=== PATIENT | female | born 1980 | race Hispanic/Latino ===

== ENCOUNTER 2019-04-22 08:23 | Observation (INO) | payer BC ==
[2019-04-22] MEDS ORDERED: ASPIRIN 325 MG TAB PO ONE (08:38)
--- NOTE | 2019-04-22 09:07 | XRay Report ---
CHEST 1 VIEW INDICATION / CLINICAL INFORMATION: Chest Pain. COMPARISON: None available. FINDINGS: SUPPORT DEVICES: None. HEART / MEDIASTINUM: No significant abnormality. LUNGS / PLEURA: No significant pulmonary or pleural abnormality. No pneumothorax. Right breast contour is not well seen, related to asymmetry or previous mastectomy. IMPRESSION: No acute finding. Signer Name: Israel Willoughby MD Signed: 04/22/2019 9:03 AM Workstation Name: [id number]
[2019-04-22 09:09] LABS: Basophils # (Auto) 0.1 K/mm3 (0.0-0.1); Basophils % (Auto) 0.9 % (0.0-1.8); Eosinophils # (Auto) 0.4 K/mm3 (0.0-0.4); Eosinophils % (Auto) 5.4 % (0.0-4.3); Hematocrit 37.7 % (30.3-42.9); Hemoglobin 12.7 gm/dl (10.1-14.3); Lymphocytes # (Auto) 1.9 K/mm3 (1.2-5.4); Lymphocytes % (Auto) 28.1 % (13.4-35.0); Mean Corpuscular HGB Conc 34 % (30-34); Mean Corpuscular Volume 92 fl (79-97); Monocytes # (Auto) 0.4 K/mm3 (0.0-0.8); Monocytes % (Auto) 6.1 % (0.0-7.3); Platelet Count 351 K/mm3 (140-440); Red Blood Count 4.09 M/mm3 (3.65-5.03); Red Cell Distribution Width 12.9 % (13.2-15.2)
--- NOTE | 2019-04-22 09:14 | Emergency Department Report ---
ED General Adult HPI - General Chief complaint: Chest Pain Stated complaint: CP/THROAT PAIN Time Seen by Provider: 04/22/19 08:52 Source: patient Mode of arrival: Ambulatory Limitations: No Limitations - History of Present Illness Initial comments: This is a 39-year-old female who was evaluated at [facility] yesterday. She has been having recurrent symptoms for the past week and a half. She describes a tightness that begins at the base of her neck ("throat"). She states that it radiates to her chest and causes a substernal heaviness as well as higher in her neck. She states that she has some sharp pain in her back with this. She denies any precipitating elements. She states that she sometimes gets it at rest and sometimes when walking. It is not pleuritic. It is not associated with cough nausea vomiting sweating or dyspnea. She denies any recent travel leg pain or swelling. Patient has no known history of coronary artery disease nor dyslipidemia. She states that she has an aunt that has "angina". -: Gradual, week(s) Location: neck, chest, back Radiation: other (described above) Quality: other (above explained) Consistency: intermittent, now resolved Improves with: none Worsens with: none Associated Symptoms: denies other symptoms - Related Data Allergies Allergy/AdvReac Type Severity Reaction Status Date / Time No Known Allergies Allergy Unverified 04/22/19 08:32 ED Review of Systems ROS: Stated complaint: CP/THROAT PAIN Other details as noted in HPI Constitutional: denies: chills, fever Eyes: denies: eye pain, eye discharge, vision change ENT: throat pain. denies: ear pain Respiratory: denies: cough, shortness of breath, wheezing Cardiovascular: chest pain. denies: palpitations Endocrine: no symptoms reported Gastrointestinal: denies: abdominal pain, nausea, diarrhea Genitourinary: denies: urgency, dysuria, discharge Musculoskeletal: back pain. denies: joint swelling, arthralgia Skin: denies: rash, lesions Neurological: denies: headache, weakness, paresthesias Psychiatric: denies: anxiety, depression Hematological/Lymphatic: denies: easy bleeding, easy bruising ED Past Medical Hx - Past Medical History Previous Medical History?: Yes Additional medical history: MVP - Surgical History Past Surgical History?: No - Social History Smoking Status: Never Smoker Substance Use Type: Alcohol ED Physical Exam - General Limitations: No Limitations General appearance: alert, in no apparent distress - Head Head exam: Present: atraumatic, normocephalic - Eye Eye exam: Present: normal appearance. Absent: scleral icterus - ENT ENT exam: Present: mucous membranes moist - Neck Neck exam: Present: normal inspection - Respiratory Respiratory exam: Present: normal lung sounds bilaterally. Absent: respiratory distress - Cardiovascular Cardiovascular Exam: Present: regular rate, normal rhythm. Absent: systolic murmur, diastolic murmur, rubs, gallop - GI/Abdominal GI/Abdominal exam: Present: soft, normal bowel sounds. Absent: distended, tenderness, guarding, rebound, rigid - Extremities Exam Extremities exam: Present: normal inspection, normal capillary refill. Absent: pedal edema, joint swelling, calf tenderness - Back Exam Back exam: Present: normal inspection - Neurological Exam Neurological exam: Present: alert, oriented X3, CN II-XII intact. Absent: motor sensory deficit - Psychiatric Psychiatric exam: Present: normal affect, normal mood - Skin Skin exam: Present: warm, dry, intact, normal color. Absent: rash ED Course Vital Signs 04/22/19 04/22/19 04/22/19 08:32 08:57 09:00 Temperature 98.5 F Pulse Rate 88 Respiratory 20 Rate Blood Pressure 128/76 120/76 O2 Sat by Pulse 99 99 100 Oximetry 04/22/19 04/22/19 04/22/19 09:30 10:00 10:30 Temperature Pulse Rate Respiratory Rate Blood Pressure 129/75 131/76 134/92 O2 Sat by Pulse 100 100 100 Oximetry 04/22/19 04/22/19 11:01 11:30 Temperature Pulse Rate Respiratory Rate Blood Pressure 140/83 144/78 O2 Sat by Pulse 100 99 Oximetry - Reevaluation(s) Reevaluation #1: Discussed with hospitalist. Patient admitted for further care and evaluation. 04/22/19 12:11 ED Medical Decision Making - Lab Data Result diagrams: 04/22/19 08:48 04/22/19 08:48 Laboratory Results - last 24 hr 04/22/19 04/22/19 08:48 08:48 WBC 6.8 RBC 4.09 Hgb 12.7 Hct 37.7 MCV 92 MCH 31 MCHC 34 RDW 12.9 L Plt Count 351 Lymph % (Auto) 28.1 [place] % (Auto) 6.1 Eos % (Auto) 5.4 H Baso % (Auto) 0.9 Lymph # 1.9 [place] # 0.4 Eos # 0.4 Baso # 0.1 Seg Neutrophils % 59.5 Seg Neutrophils # 4.1 Sodium 137 Potassium 4.0 Chloride 102.2 Carbon Dioxide 20 L Anion Gap 19 BUN 14 Creatinine 0.6 L Estimated GFR > 60 BUN/Creatinine Ratio 23 Glucose 102 H Calcium 9.4 Troponin T < 0.010 - EKG Data -: EKG Interpreted by Me EKG shows normal: sinus rhythm, axis, intervals, QRS complexes, ST-T waves Rate: normal - EKG Data Interpretation: normal EKG, other (lower voltage probably related to habitus) - Radiology Data Radiology results: report reviewed (NAF) Critical care attestation.: If time is entered above; I have spent that time in minutes in the direct care of this critically ill patient, excluding procedure time. ED Disposition Clinical Impression: Chest pain Qualifiers: Chest pain type: unspecified Qualified Code(s): R07.9 - Chest pain, unspecified Disposition: OP ADMIT IP TO THIS HOSP Is pt being admited?: Yes Does the pt Need Aspirin: Yes Condition: Stable Instructions: Chest Pain (ED) Time of Disposition: 12:11
[2019-04-22 09:27] LABS: BUN/Creatinine Ratio 23; Blood Urea Nitrogen 14 mg/dL (7-17); Calcium 9.4 mg/dL (8.4-10.2); Hemolysis Index 10
[2019-04-22] MEDS ORDERED: oxyCODONE /ACETAMINOPHEN 5-325MG TAB PO PRN (20:51)
[2019-04-22] MEDS ORDERED: ONDANSETRON 4 MG/2 ML INJ IV PRN (20:51)
[2019-04-22] MEDS ORDERED: ACETAMINOPHEN 325 MG TAB PO PRN (20:51)
--- NOTE | 2019-04-22 20:57 | History and Physical Report ---
History of Present Illness Date of admission: 04/22/19 12:02 History of present illness: 39-year-old woman who presents to the hospital complaining of a very strange chest pain that has been going on for 2 weeks now. She describes it as a sharp pain that starts in the base of her neck and goes into stops the inner area and then radiates to her back. The pain is not related to eating or drinking, is not positional, is not related to exertion. She states that sometimes it keeps her up at night and wakes her up. The episodes only last 1 to 2 minutes. Have been going on for 2 weeks, at times she would not have any episode for a day or 2, then it comes back more severe the following day. It got really bad today prompting her to go to [facility] who then referred her to the ER. Past History Past Medical History: No medical history Past Surgical History: No surgical history Social history: no significant social history Family history: no significant family history Medications and Allergies Allergies Allergy/AdvReac Type Severity Reaction Status Date / Time No Known Allergies Allergy Unverified 04/22/19 08:32 Active Meds: Active Medications Acetaminophen (Tylenol) 650 mg PO Q4H PRN PRN Reason: Pain MILD(1-3)/Fever >100.5/MA Ondansetron HCl (Zofran) 4 mg IV Q8H PRN PRN Reason: Nausea And Vomiting Oxycodone/Acetaminophen (Percocet 5/325) 1 tab PO Q6H PRN PRN Reason: Pain, Moderate (4-6) Sodium Chloride (Sodium Chloride Flush Syringe 10 Ml) 10 ml IV BID AQUILES Sodium Chloride (Sodium Chloride Flush Syringe 10 Ml) 10 ml IV PRN PRN PRN Reason: LINE FLUSH Sodium Chloride (Sodium Chloride Flush Syringe 10 Ml) 10 ml IV PRN PRN PRN Reason: LINE FLUSH Review of Systems All systems: negative (See HPI) Exam - Constitutional Vitals: Temp Pulse Resp BP Pulse Ox 98.5 F 90 16 108/54 98 04/22/19 08:32 04/22/19 18:33 04/22/19 18:33 04/22/19 20:01 04/22/19 20:01 General appearance: Present: no acute distress, well-nourished - EENT Eyes: Present: PERRL ENT: hearing intact, clear oral mucosa - Neck Neck: Present: supple, normal ROM - Respiratory Respiratory effort: normal Respiratory: bilateral: CTA - Cardiovascular Heart Sounds: Present: S1 & S2. Absent: rub, click - Extremities Extremities: pulses symmetrical, No edema Peripheral Pulses: within normal limits - Abdominal General gastrointestinal: Present: soft, non-tender, non-distended, normal bowel sounds Female genitourinary: Present: normal - Integumentary Integumentary: Present: clear, warm, dry - Musculoskeletal Musculoskeletal: gait normal, strength equal bilaterally - Psychiatric Psychiatric: appropriate mood/affect, intact judgment & insight - Neurologic Neurologic: CNII-XII intact, moves all extremities Results - Labs CBC & Chem 7: 04/22/19 08:48 04/22/19 08:48 Labs: Laboratory Last Values WBC 6.8 K/mm3 (4.5-11.0) 04/22/19 08:48 RBC 4.09 M/mm3 (3.65-5.03) 04/22/19 08:48 Hgb 12.7 gm/dl (10.1-14.3) 04/22/19 08:48 Hct 37.7 % (30.3-42.9) 04/22/19 08:48 MCV 92 fl (79-97) 04/22/19 08:48 MCH 31 pg (28-32) 04/22/19 08:48 MCHC 34 % (30-34) 04/22/19 08:48 RDW 12.9 % (13.2-15.2) L 04/22/19 08:48 Plt Count 351 K/mm3 (140-440) 04/22/19 08:48 Lymph % (Auto) 28.1 % (13.4-35.0) 04/22/19 08:48 [place] % (Auto) 6.1 % (0.0-7.3) 04/22/19 08:48 Eos % (Auto) 5.4 % (0.0-4.3) H 04/22/19 08:48 Baso % (Auto) 0.9 % (0.0-1.8) 04/22/19 08:48 Lymph # 1.9 K/mm3 (1.2-5.4) 04/22/19 08:48 Walsh # 0.4 K/mm3 (0.0-0.8) 04/22/19 08:48 Eos # 0.4 K/mm3 (0.0-0.4) 04/22/19 08:48 Baso # 0.1 K/mm3 (0.0-0.1) 04/22/19 08:48 Seg Neutrophils % 59.5 % (40.0-70.0) 04/22/19 08:48 Seg Neutrophils # 4.1 K/mm3 (1.8-7.7) 04/22/19 08:48 Sodium 137 mmol/L (137-145) 04/22/19 08:48 Potassium 4.0 mmol/L (3.6-5.0) 04/22/19 08:48 Chloride 102.2 mmol/L (98-107) 04/22/19 08:48 Carbon Dioxide 20 mmol/L (22-30) L 04/22/19 08:48 Anion Gap 19 mmol/L 04/22/19 08:48 BUN 14 mg/dL (7-17) 04/22/19 08:48 Creatinine 0.6 mg/dL (0.7-1.2) L 04/22/19 08:48 Estimated GFR > 60 ml/min 04/22/19 08:48 BUN/Creatinine Ratio 23 % 04/22/19 08:48 Glucose 102 mg/dL (65-100) H 04/22/19 08:48 Calcium 9.4 mg/dL (8.4-10.2) 04/22/19 08:48 Troponin T < 0.010 ng/mL (0.00-0.029) 04/22/19 15:31 - Imaging and Cardiology Chest x-ray: image reviewed (No acute findings) Assessment and Plan Assessment and plan: 39-year-old woman who presents to the hospital with atypical chest pain Chest pain aspirin, EKG no acute findings, chest x-ray neg, troponins negative so far, serial CE, keep NPO for now cardiology consult to determine modality for coronary risk stratification Atypical chest pain Concern for esophageal spasm, will obtain barium swallow DVT prophylaxis; early ambulation Preventative health counseling performed for 17 minutes
[2019-04-23 01:54] LABS: Basophils # (Auto) 0.1 K/mm3 (0.0-0.1); Eosinophils # (Auto) 0.4 K/mm3 (0.0-0.4); Eosinophils % (Auto) 5.6 % (0.0-4.3); Hematocrit 37.5 % (30.3-42.9); Hemoglobin 12.6 gm/dl (10.1-14.3); Lymphocytes % (Auto) 28.1 % (13.4-35.0); Mean Corpuscular HGB Conc 34 % (30-34); Mean Corpuscular Volume 92 fl (79-97); Monocytes # (Auto) 0.5 K/mm3 (0.0-0.8); Monocytes % (Auto) 7.2 % (0.0-7.3); Platelet Count 346 K/mm3 (140-440); Red Blood Count 4.06 M/mm3 (3.65-5.03); Red Cell Distribution Width 13.2 % (13.2-15.2)
[2019-04-23 02:12] LABS: BUN/Creatinine Ratio 26; Blood Urea Nitrogen 13 mg/dL (7-17); Calcium 8.8 mg/dL (8.4-10.2); Hemolysis Index 18
--- NOTE | 2019-04-23 08:52 | Fluoroscopy Report ---
BARIUM SWALLOW Indication: chest pain and throat pain,. Technique: Single and double contrast barium technique utilized to evaluate the esophagus. FINDINGS: To begin the exam, swallowing was evaluated in the lateral position under direct fluorosco py. Swallowing was normal. No mucosal irregularity, mass, mass effect, or critical stenosis. There were no abnormal tertiary c ontractions as seen with dysmotility. No gastroesophageal reflux. IMPRESSION: Unremarkable exam. Fluoroscopic time: 0.9 minutes Number of fluoroscopic images: 34 Signer Name: Sav Gr Jr, MD Signed: 04/23/2019 8:47 AM Workstation Name: [id number]
--- NOTE | 2019-04-23 11:21 | Consultation ---
History of Present Illness Consult date: 04/23/19 Consult reason: chest pain History of present illness: This is a 39-year old woman who presented with reports of tightness that begins in her throat with pain radiating to her chest and back. Patient denies chest pain on exertion. There are no reports of unusual shortness of breath. Cycled troponins are normal. Chest x-ray is negative and her ECG is benign, sinus rhythm with low voltage. Further evaluation with a barium swallow test is also unremarkable. A cardiac consultation has been for further evaluation of chest pain. Past History Past Medical History: No medical history Past Surgical History: No surgical history Social history: no significant social history Family history: no significant family history Medications and Allergies Allergies Allergy/AdvReac Type Severity Reaction Status Date / Time No Known Allergies Allergy Unverified 04/22/19 08:32 Home Medications Medication Instructions Recorded Confirmed Last Taken Type No Known Home Medications [No 04/23/19 04/23/19 Unknown History Reported Home Medications] Active Meds: Active Medications Acetaminophen (Tylenol) 650 mg PO Q4H PRN PRN Reason: Pain MILD(1-3)/Fever >100.5/MA Ondansetron HCl (Zofran) 4 mg IV Q8H PRN PRN Reason: Nausea And Vomiting Oxycodone/Acetaminophen (Percocet 5/325) 1 tab PO Q6H PRN PRN Reason: Pain, Moderate (4-6) Sodium Chloride (Sodium Chloride Flush Syringe 10 Ml) 10 ml IV BID AQUILES Last Admin: 04/23/19 06:23 Dose: 10 ml Documented by: Sodium Chloride (Sodium Chloride Flush Syringe 10 Ml) 10 ml IV PRN PRN PRN Reason: LINE FLUSH Physical Examination Vital Signs Temp Pulse Resp BP Pulse Ox 98.5 F 88 20 128/76 99 04/22/19 08:32 04/22/19 08:32 04/22/19 08:32 04/22/19 08:32 04/22/19 08:32 General appearance: no acute distress HEENT: Positive: PERRL Neck: Positive: trachea midline Cardiac: Positive: Reg Rate and Rhythm Lungs: Positive: Normal Breath Sounds Neuro: Positive: Grossly Intact Results 04/23/19 01:37 04/23/19 01:37 CBC 04/23/19 Range/Units 01:37 WBC 7.3 (4.5-11.0) K/mm3 RBC 4.06 (3.65-5.03) M/mm3 Hgb 12.6 (10.1-14.3) gm/dl Hct 37.5 (30.3-42.9) % Plt Count 346 (140-440) K/mm3 Lymph # 2.0 (1.2-5.4) K/mm3 [place] # 0.5 (0.0-0.8) K/mm3 Eos # 0.4 (0.0-0.4) K/mm3 Baso # 0.1 (0.0-0.1) K/mm3 Comprehensive Metabolic Panel 04/23/19 Range/Units 01:37 Sodium 139 (137-145) mmol/L Potassium 4.0 (3.6-5.0) mmol/L Chloride 106.5 (98-107) mmol/L Carbon Dioxide 21 L (22-30) mmol/L BUN 13 (7-17) mg/dL Creatinine 0.5 L (0.7-1.2) mg/dL Glucose 104 H (65-100) mg/dL Calcium 8.8 (8.4-10.2) mg/dL Assessment and Plan - Patient Problems (1) Chest pain Current Visit: Yes Status: Acute Qualifiers: Qualified Code(s): R07.9 - Chest pain, unspecified Plan to address problem: Atypical chest pain We will obtain a treadmill test today for further cardiac evaluation.
[2019-04-23] MEDS ORDERED: diphenhydrAMINE 50 MG/ML VIAL IV ONE (14:52)
[2019-04-23 16:42] VITALS: BP 113/68
--- NOTE | 2019-04-23 22:27 | Treadmill Report ---
EXERCISE STRESS TEST REPORT. REASON FOR TEST: Chest pain. The patient exercised for 9 minutes and 30 seconds of a Timothy protocol, reaching stage 4 and achieving 10.5 mets. There was no chest pain. Test was stopped for fatigue. Baseline ECG was sinus rhythm. With exercise, there were no ST changes of ischemia. No significant dysrhythmias were noted. CONCLUSION: 1. Very good exercise capacity. 2. No chest pain. 3. No ST changes of ischemia. 4. No significant dysrhythmias. 5. Normal exercise ECG test. JOB# [id number] CA/NTS
== END 2019-04-23 17:00 | disposition home or self-care (01) ==
LOC: ED 08:23 → 3A 12:02
PROVIDERS: ADMIT Internal Medicine; ATTEND Internal Medicine
DX: R07.89 Other chest pain (principal); Z79.899 Other long term (current) drug therapy
CPT/HCPCS: 36415; 71045; 74221; 80048; 84484; 85025; 93005; 93010; 93017; 96374; 99284; G0378; J1200